=== PATIENT | male | born 1960 | race Caucasian/White ===

== ENCOUNTER 2020-04-26 15:07 | Outpatient (CLI) | payer OTHER ==
[~2020-04-26 15:07] MED LIST: Magnevist 469MG/ML 20 ML VIAL ONE
== END 2020-04-26 15:08 | disposition home or self-care (01) ==
LOC: BICMRI 15:07
PROVIDERS: ATTEND Physical Medicine & Rehabilitation
DX: M54.5 Low back pain (principal); S39.012A Strain of muscle, fascia and tendon of lower back, initial encounter; M51.26 Other intervertebral disc displacement, lumbar region
CPT/HCPCS: 72158; 82565; A9579

== ENCOUNTER 2022-03-27 16:01 | Outpatient (CLI) | payer BC ==
[2022-03-27 16:42] LABS: Hemoglobin 14.5 g/dL (13.5-17.5); Mean Corpuscular HGB CONC 34.4 g/dL (32.0-36.0); Mean Corpuscular Hemoglobin 31.5 pg (27.0-33.0); Mean Corpuscular Volume 91.5 fl (81.2-95.1); Mean Platelet Volume 9.4 fl (7.4-10.4); Platelet Count 303 10x3/uL (150-450); RBC Distribution Width 11.9 % (11.5-14.5); Red Blood Cell (RBC) Count 4.61 10x6/uL (4.32-5.72); White Blood Cell (WBC) Count 12.4 10x3/uL (3.5-10.5)
[2022-03-27 17:02] LABS: Anion Gap 13 mmol/L (10-20); BUN (Urea Nitrogen) 27 mg/dL (8.4-25.7); Calc. Creatinine Clearance 0 mL/min (70-130); Calcium 9.2 mg/dL (7.8-10.44); Carbon Dioxide 26 mmol/L (23-31); Chloride 105 mmol/L (98-107); Estimated GFR 67; Glucose 135 mg/dL (80-115); Potassium 3.9 mmol/L (3.5-5.1); Sodium 140 mmol/L (136-145)
== END 2022-03-27 16:02 | disposition home or self-care (01) ==
LOC: LABBT 16:01
PROVIDERS: ATTEND Neurological Surgery
DX: Z01.818 Encounter for other preprocedural examination (principal); M54.12 Radiculopathy, cervical region
CPT/HCPCS: 80048; 85027; 93005; 93010

== ENCOUNTER 2022-04-03 08:15 | Observation (INO) | payer BC ==
[2022-03-31 13:22] VITALS: BMI 36.0
[2022-04-03] MEDS ORDERED: Fentanyl 250 MCG/5 ML VIAL ONE (12:02)
[2022-04-03] MEDS ORDERED: CEFAZOLIN 2 GM VIAL ONE (12:03)
[2022-04-03] MEDS ORDERED: Sodium Chloride 0.9% 100 ML ONE (12:03)
[2022-04-03] MEDS ORDERED: PHENYLEPHRINE-NS 100 MCG/ML 10 ML SYRINGE ONE (12:17)
[2022-04-03] MEDS ORDERED: Lidocaine 1% PF 5 ML VIAL ONE (12:17)
[2022-04-03] MEDS ORDERED: Dexamethasone 20 MG/5 ML VIAL ONE (12:17)
[2022-04-03] MEDS ORDERED: NEOSTIGMINE 3 MG/3 ML SYR 3 MG/3 ML SYRINGE ONE (12:17)
[2022-04-03] MEDS ORDERED: Ondansetron PF 4 MG/2 ML Vial ONE (12:17)
[2022-04-03] MEDS ORDERED: PROPOFOL 200 MG/20 ML VIAL ONE (12:17)
[2022-04-03] MEDS ORDERED: Glycopyrrolate 0.2 MG/ML 5 ML SYRINGE ONE (12:17)
[2022-04-03] MEDS ORDERED: Rocuronium Bromide 10 MG/ML (10ML VIAL) ONE (12:17)
[2022-04-03] MEDS ORDERED: Acetaminophen/Codeine 30-300mg Tablet PO PRN (13:07)
[2022-04-03] MEDS ORDERED: Morphine 2 MG/ML VIAL SLOW IVP PRN (13:07)
[2022-04-03] MEDS ORDERED: Ondansetron PF 4 MG/2 ML Vial IVP PRN (13:07)
[2022-04-03] MEDS ORDERED: Promethazine 25 MG TAB PO PRN (13:07)
[2022-04-03] MEDS ORDERED: diphenhydrAMINE 25 MG CAP PO PRN (13:07)
[2022-04-03] MEDS ORDERED: traMADol HCl 50 MG TAB PO PRN (13:07)
[2022-04-03] MEDS ORDERED: Mag-Al 1200 mg/1200 mg/30 ML UDCUP PO PRN (13:07)
[2022-04-03] MEDS ORDERED: Milk Of Magnesia 30 ML UDCUP PO PRN (13:07)
[2022-04-03] MEDS ORDERED: Dextrose 5% in Water 1,000 ML IV PRN (13:11)
[2022-04-03] MEDS ORDERED: Dextrose 50% Abboject 50 ML SYRINGE SLOW IVP PRN (13:11)
[2022-04-03] MEDS ORDERED: HumaLOG 300 UNITS/3 ML VIAL SC PRN (13:11)
[2022-04-03] MEDS ORDERED: Zolpidem Tartrate 5 MG TAB PO PRN (13:11)
[2022-04-03] MEDS ORDERED: Ondansetron HCl/PF 4 MG/2 ML Vial IVP PRN (13:25)
[2022-04-03] MEDS ORDERED: PACU-Morphine 4MG/ML VIAL SLOW IVP PRN (13:25)
[2022-04-03] MEDS ORDERED: Promethazine HCl 25 MG/ML VIAL IM PRN (13:25)
[2022-04-03] MEDS ORDERED: Fentanyl 100 MCG/2 ML VIAL ONE ×2 (13:32→14:06)
[2022-04-03] MEDS ORDERED: Acetaminophen 500 MG TAB ONE (13:49)
[2022-04-03] MEDS ORDERED: Tamsulosin HCl 0.4 MG CAP ONE (14:08)
[2022-04-03] MEDS ORDERED: Morphine 4 MG/ML VIAL ONE (14:16)
[2022-04-03 15:54] LABS: SARS-CoV-2 NAA Rapid Test Not Detected (NotDetected)
[2022-04-03] MEDS: Sodium Chloride 0.9% 1,000 ML IV SCH (16:23)
[2022-04-03] MEDS: Gabapentin 400 MG CAP PO SCH ×2 (16:54→20:16)
[2022-04-03] MEDS: metFORMIN 500 MG TAB PO SCH (16:54)
[2022-04-03] MEDS: CEFAZOLIN 2 GM in Sodium Chloride 0.9% 100 ML IVPB SCH (20:15)
[2022-04-03] MEDS: Baclofen 10 MG TAB PO SCH (20:17)
[2022-04-04] MEDS: Sodium Chloride 0.9% 1,000 ML IV SCH (01:45)
[2022-04-04] MEDS: Acetaminophen/Codeine 30-300mg Tablet PO PRN ×2 (04:19→11:12)
[2022-04-04] MEDS: CEFAZOLIN 2 GM in Sodium Chloride 0.9% 100 ML IVPB SCH (04:19)
[2022-04-04] MEDS ORDERED: Tamsulosin HCl 0.4 MG CAP PO SCH (06:00)
[2022-04-04] MEDS: metFORMIN 500 MG TAB PO SCH (08:40)
[2022-04-04] MEDS: Baclofen 10 MG TAB PO SCH (08:40)
[2022-04-04] MEDS: Gabapentin 400 MG CAP PO SCH (08:40)
[2022-04-04] MEDS ORDERED: FLUoxetine HCl 20 MG CAP PO SCH (09:00)
[2022-04-04 09:17] VITALS: BP 137/85; TEMP 98
== END 2022-04-04 11:12 | disposition home or self-care (01) ==
LOC: SDC 08:15 → SURG A 15:58
PROVIDERS: ADMIT Neurological Surgery; ATTEND Neurological Surgery
PROC: 0RG20A0 Fusion of 2 or more Cervical Vertebral Joints with Interbody Fusion Device, Anterior Approach, Anterior Column, Open Approach (ICD-10-PCS; principal; 2022-04-03)
DX: M50.122 Cervical disc disorder at C5-C6 level with radiculopathy (principal); M48.02 Spinal stenosis, cervical region; E11.42 Type 2 diabetes mellitus with diabetic polyneuropathy; G47.30 Sleep apnea, unspecified; N40.0 Benign prostatic hyperplasia without lower urinary tract symptoms; E66.9 Obesity, unspecified; Z68.36 Body mass index [BMI] 36.0-36.9, adult; Z79.84 Long term (current) use of oral hypoglycemic drugs; Z79.899 Other long term (current) drug therapy; Z20.822 Contact with and (suspected) exposure to COVID-19
CPT/HCPCS: 36416; 96365; 96366; C1713; G0378; J1100; J2270; J2405; J2704; J3010; J3490; U0002

== ENCOUNTER 2022-04-20 08:57 | Outpatient (CLI) | payer BC | END 2022-04-20 08:58 | disposition home or self-care (01) | LOC: TBSIIMAG 08:57 | PROVIDERS: ATTEND Neurological Surgery | DX: M54.12 Radiculopathy, cervical region (principal); Z98.1 Arthrodesis status | CPT/HCPCS: 72040 ==